=== PATIENT | male | born 1945 | race Caucasian/White ===

== ENCOUNTER → 2020-10-21 | Outpatient (REF) ==
[~2020-10-21] MED LIST: ALPHA LIPOIC A200 M2 PO; AZO-STANDARD95 MG PO; BIOTIN5000 MCG PO; CIPRO 500MG TA500 MG PO; CYMBALTA 30MG30 MG PO; DENTA 5000 PLUS1.1% DE; DEPO-TESTOS200 MG/M1 IM; DILAUDID 4MG TAB4 MG PO; EPA FISH OIL1 SGL PO; FLOMAX 0.40.4 MG/CAP PO; K-DUR20 MEQ PO; K-TAB10 PO; LASIX 20MG TABL20 MG PO; LYRICA 100MG C100 M1 PO; MS CONTIN 660 MG/TAB PO; NEURONTIN300 MG/CAP PO; NORCO 325 MG-7.1 TAB PO; NORVASC 10MG10 MG PO; PRIL40 PO; PROBIOTIC BLEN1 EACH PO; RITALIN 20M20 MG/TAB PO; SOMA 350MG350 MG/TAB PO; SYNTHROID0.112 MG/T PO; SYNTHROID0.125 MG/T PO; TURMERIC500 MG PO; ULTRAM 50MG TAB50 MG PO; VALIUM 5MG T5 MG/TAB PO; VITAMIN B12 1541 TAB PO; VITAMIN E 400 U4001 PO; VITAMINE200; XYOSTED100 MG/0.5 SQ
== END ==
LOC: ZCOL.LAB 09:29
DX: L08.9 Local infection of the skin and subcutaneous tissue, unspecified (principal)